=== PATIENT | male | born 1985 | race Caucasian/White ===

== ENCOUNTER 2020-03-04 15:23 | Outpatient (REF) | payer BC, SELFPAY ==
[2020-03-04 21:26] LABS: Calculated LDL 141 mg/dL (<100); Cholesterol 218 mg/dL (<200); HDL Cholesterol 58 mg/dL (40-60); Triglyceride 96 mg/dL (<150)
[2020-03-04 21:36] LABS: Hemoglobin A1C 4.9 % (3.8-5.6)
== END 2020-03-04 15:43 ==
LOC: LBN 15:23
PROVIDERS: PCP Nurse Practitioner; Visit Provider Nurse Practitioner
DX: Z13.6 Encounter for screening for cardiovascular disorders (principal)
CPT/HCPCS: 80061; 83036

== ENCOUNTER 2020-04-29 07:54 | Outpatient (CLI) | payer BC, SELFPAY ==
[2020-05-01 11:48] LABS: Patient Race White; SARS-CoV-2 RNA Undetected (Undetected); SARS-CoV-2 Specimen Source Nasopharynx
== END 2020-04-29 08:14 ==
PROVIDERS: PCP Nurse Practitioner; Visit Provider Nurse Practitioner
DX: Z11.59 Encounter for screening for other viral diseases (principal)
CPT/HCPCS: U0003

== ENCOUNTER 2024-10-08 18:23 | Outpatient (CLI) | payer BC, SELFPAY ==
--- NOTE | 2024-10-08 19:04 | DI.RAD_ITS ---
Exam(s) XR THORACIC SPINE COMPLETE EXAM: XR THORACIC SPINE COMPLETE CLINICAL HISTORY: back pain M54.9. TECHNIQUE: 2D digital imaging was performed. Three views. COMPARISON: No exams were available for comparison FINDINGS: BONES: There is no fracture or destructive lesion. The vertebral bodies and posterior elements are un remarkable. ALIGNMENT: Within normal limits. DISKS: Mild degenerative changes with small endplate osteophytes and mild narrowing of the anterior disc spaces. Right-sided bridging osteophyte is noted at T9-10. SOFT TISSUE: Visualized lungs are clear. IMPRESSION: Mild degenerative changes. DATA REPOSITORY: RADIATION DOSE DELIVERED:
--- NOTE | 2024-10-08 19:05 | DI.RAD_ITS ---
Exam(s) XR CERVICAL SPINE COMP 4-5V EXAM: XR CERVICAL SPINE COMP 4-5V CLINICAL HISTORY: back pain M54.9. TECHNIQUE: 2D digital imaging was performed. Five views were performed. COMPARISON: No exams were available for comparison FINDINGS: BONES: No fracture or destructive lesion. Vertebral bodies are unremarkable. DISKS: Intervertebral disc spaces are maintained. ALIGNMENT: Cervical spinal alignment is within normal limits. The odontoid and atlantoaxial articulat ions are normal. SOFT TISSUE: Normal. The lung apices are clear. IMPRESSION: Unremarkable radiographs of the cervical spine. DATA REPOSITORY: RADIATION DOSE DELIVERED:
--- NOTE | 2024-10-08 20:13 | DI.VRAD_ITS ---
PROCEDURE INFORMATION: Exam: XR Spine Exam date and time: 10/08/2024 6:47 PM Age: 39 years old Clinical indication: Symptoms: Back/neck pain TECHNIQUE: Imaging protocol: Radiologic exam of the spine. Views: 1 view. COMPARISON: No relevant prior studies available. FINDINGS: Bones/joints: The lateral projection extends from the base of the skull to the C6-C7 level. No acute fracture or dislocation identified. There is normal alignment on the AP and lateral projections. The odontoid is intact. The spinous processes are intact. The oblique projections reveal no right or left foraminal stenoses. There is only minimal degenerative change at the C 5-6 level consisting of minimal anterior spur formation. Soft tissues: The prevertebral soft tissues are normal. Other findings: No foreign bodies. IMPRESSION: 1. 1. No acute bony change or significant degenerative change identified. There is normal alignment. This does not exclude disc pathology or central stenosis. Dictated and Authenticated by: Fernie Jones MD. Orderin Aneta Shin MD
--- NOTE | 2024-10-08 20:15 | DI.VRAD_ITS ---
PROCEDURE INFORMATION: Exam: XR Thoracic Spine Exam date and time: 10/08/2024 6:52 PM Age: 39 years old Clinical indication: Other: Back pain TECHNIQUE: Imaging protocol: Radiologic exam of the thoracic spine. Views: 3 views. COMPARISON: CR XR CERVICAL SPINE COMP 4-5V 10/08/2024 6:47 PM FINDINGS: Bones/joints: AP and lateral views of the thoracic spine are obtained. No acute fracture or dislocation identified. There is no scoliosis. There is mild kyphosis of the upper thoracic spine. There is no significant vertebral body wedging. There is mild degenerative change of the mid and lower thoracic spine consisting of minimal endplate sclerosis and spur formation. There is right-sided lateral bridging osteophytes at the T 9-10 level. The pedicles are intact Soft tissues: The paravertebral soft tissues are unremarkable. IMPRESSION: 1. No acute fracture or dislocation. If the patient has new neurologic symptoms further evaluation with an MRI scan may be helpful. 2. Mild degenerative change of the mid and lower thoracic spine with right-sided lateral bridging osteophytes at the T9-10 level. 3. Mild kyphosis of the upper thoracic spine without abnormal vertebral body wedging. Dictated and Authenticated by: Fernie Jones MD. Orderin Aneta Shin MD
== END 2024-10-08 18:43 ==
PROVIDERS: PCP Nurse Practitioner Family; Visit Provider Physician Assistant
DX: M54.9 Dorsalgia, unspecified (principal)
CPT/HCPCS: 72050; 72072

== ENCOUNTER 2024-10-29 01:07 | Outpatient (CLI) | payer BC, SELFPAY ==
--- NOTE | 2024-10-29 07:20 | DI.MRI_ITS ---
Exam(s) MR THORACIC SPINE WO EXAM: MR THORACIC SPINE WO CLINICAL HISTORY: back pain,m54.9. TECHNIQUE: Multiplanar multisequence MRI of the Thoracic spine was performed. COMPARISON: CR,XR XR THORACIC SPINE COMPLETE from 10/08/2024 FINDINGS: Bones: The vertebral body heights are well maintained. Alignment is satisfactory. There are degenerat cedric endplate signal changes at a few of the thoracic spine disc levels. Cord: The thoracic cord is normal size and signal intensity. No intrinsic cord lesion is present. Discs: There are a few very small disc bulges in the thoracic spine. There is a small right-sided di sc herniation at T3-4. No nerve root compression or central spinal cord compression results. There is no central spinal canal or neural foraminal stenosis seen within the thoracic spine. Soft tissues: Normal. IMPRESSION: 1. Small right-sided disc herniation at T3-T4. No nerve root compression or central spinal cord comp ression result. 2. Mild degenerative changes seen in the cervical spine. 3. No central spinal canal or neural foraminal stenosis is seen within the thoracic spine. DATA REPOSITORY:
== END 2024-10-29 01:27 ==
LOC: DI 01:07
PROVIDERS: PCP Nurse Practitioner Family; Visit Provider Physician Assistant
DX: M51.24 Other intervertebral disc displacement, thoracic region (principal)
CPT/HCPCS: 72146

== ENCOUNTER 2025-07-23 12:21 | Outpatient (REF) | payer BC, SELFPAY ==
[2025-07-23 20:31] LABS: ALT 55 U/L (10-49); AST 33 U/L (<34); Albumin 4.5 g/dL (3.2-5.0); Alkaline Phosphatase 48 U/L (46-116); Anion Gap 9.7 mmol/L (3-11); BUN 19 mg/dL (9-23); Bilirubin, Total 0.5 mg/dL (0.2-1.2); CO2 28.3 mmol/L (20.0-31.0); Calcium 9.5 mg/dL (8.3-10.6); Chloride 103 mmol/L (98-107); Cholesterol 221 mg/dL (<200); Glucose 106 mg/dL (74-106); HDL Cholesterol 54 mg/dL (>40); Potassium 4.0 mmol/L (3.5-5.1); Sodium 141 mmol/L (136-145); Total Protein 7.0 g/dL (5.7-8.2)
[2025-07-24 18:46] LABS: Hepatitis C Ab w Rflx HCV PCR Negative (Negative)
[2025-07-24 18:47] LABS: HBs Antibody, Quant 830.3 mIU/mL (See Note); Hepatitis B Surface Antigen Negative (Negative)
== END 2025-07-23 12:22 | disposition home or self-care (01) ==
LOC: LBN 12:21
PROVIDERS: PCP Nurse Practitioner Family; Visit Provider Nurse Practitioner Family
DX: Z11.59 Encounter for screening for other viral diseases (principal); Z13.220 Encounter for screening for lipoid disorders
CPT/HCPCS: 80053; 80061; 86704; 86706; 86803; 87340